=== PATIENT | male | born 1975 | race Caucasian/White ===

== ENCOUNTER → 2016-09-12 | Outpatient (CLI) | payer BC ==
--- NOTE | 2016-09-12 10:02 | Diagnostic Imaging Report ---
PROCEDURE: MR imaging cervical spine without contrast. TECHNIQUE: Multiplanar, multisequence MR imaging of the cervical spine was performed without contrast. INDICATION: Numbness and tingling. FINDINGS: There is straightening of the cervical spine lordotic curvature. There is minimal posterior translation of C5 over C6. The vertebral body heights are preserved. The discs demonstrate desiccation at the mid cervical spine levels with moderate disc height loss at C5-C6 level. The bone marrow demonstrates no significant abnormality. The upper cervical canal and the craniocervical junction is all patent. The spinal cord has normal caliber, contour, and signal. C2-C3: There is no disc herniation, spinal canal, or foraminal stenosis. C3-C4: No disc herniation. No spinal canal, or foraminal stenosis. C4-C5: No disc herniation. No spinal canal stenosis. There is mild facet and uncovertebral joint hypertrophy resulting in mild foraminal narrowing on the right. No significant foraminal narrowing on the left. C5-C6: There is moderate disc height loss and minimal posterior translation of C5 over C6. There is mild disc spur complex indenting the thecal sac that has minimal impression upon the anterior margin of the spinal cord. Only mild spinal canal stenosis reducing the AP dimension of the spinal canal to 9.7 mm is seen. There is no cord signal abnormality. There is bilateral moderate foraminal stenosis. C6-C7: There is minimal disc spur complex with no spinal canal stenosis. There is moderate/severe foraminal stenosis on the right side primarily from uncovertebral joint hypertrophy. No significant foraminal stenosis on the left. C7-T1: There is no disc herniation. No spinal canal or foraminal stenosis. IMPRESSION: Degenerative changes most prominent around C5-C6 and C6-C7 level. There is mild spinal canal stenosis at C5-C6. Moderate/severe right foraminal stenosis at C6-C7 also seen. Dictated by: Dictated on workstation # [id number]
== END ==
LOC: RAD 08:15
PROVIDERS: ATTEND Family Medicine
DX: M48.02 Spinal stenosis, cervical region (principal)
CPT/HCPCS: 72141